=== PATIENT | male | born 1955 | race Caucasian/White ===

== ENCOUNTER 2021-04-04 20:40 | Emergency (ER) | payer MEDICARE ==
[~2021-04-04 20:40] MED LIST: ALLOPURINOL100 MG PO; ASPIRIN325 MG PO; FLOMAX0.4 MG PO; LIPITOR40 MG PO; NORCO 5-325 TA1 EACH PO; PRINIVIL20 MG PO
[2021-04-04 23:29] LABS: BILIRUBIN NEGATIVE (NEGATIVE); BLOOD NEGATIVE Ery/uL (NEGATIVE); CLARITY CLEAR (CLEAR); COLOR YELLOW (YELLOW); GLUCOSE (U) 3+ mg/dL (NORMAL); LEUKOCYTES NEGATIVE Leu/uL (NEGATIVE); NITRITE NEGATIVE (NEGATIVE); PROTEIN NEGATIVE (NEGATIVE); SPECIFIC GRAVITY 1.015 (1.001-1.030); UROBILINOGEN 0.2 mg/dL (0.2-1.0)
== END 2021-04-05 01:03 | disposition left against medical advice (07) ==
LOC: FER 20:40
PROVIDERS: Emergency Medicine
DX: R10.9 Unspecified abdominal pain (principal); Z53.8 Procedure and treatment not carried out for other reasons
CPT/HCPCS: 81003

== ENCOUNTER 2021-09-22 15:17 | Emergency (ER) | payer MEDICARE ==
[2021-09-22] MEDS ORDERED: PREDNISONE 20MG20 MG PO (17:03)
== END 2021-09-22 17:30 | disposition home or self-care (01) ==
LOC: FER 15:17
DX: M54.41 Lumbago with sciatica, right side (principal); E11.9 Type 2 diabetes mellitus without complications; I10 Essential (primary) hypertension
CPT/HCPCS: 96372; J1100; J1885

== ENCOUNTER 2021-09-28 08:15 | Emergency (ER) | payer MEDICARE ==
[~2021-09-28] VITALS: Ht 170.2 cm; Wt 117.9 kg
[~2021-09-28 08:15] MED LIST changes: +PREDNISONE 20MG20 MG PO
[2021-09-28 09:06] LABS: BILIRUBIN NEGATIVE (NEGATIVE); BLOOD 3+ Ery/uL (NEGATIVE); GLUCOSE (U) 1+ mg/dL (NORMAL); LEUKOCYTES 1+ Leu/uL (NEGATIVE); NITRITE POSITIVE (NEGATIVE); PROTEIN TRACE (LOW) mg/dL (NEGATIVE); SPECIFIC GRAVITY 1.025 (1.001-1.030); UROBILINOGEN 0.2 mg/dL (0.2-1.0)
[2021-09-28 09:08] LABS: CLARITY CLOUDY (CLEAR); COLOR AMBER (YELLOW)
[2021-09-28 09:13] LABS: BACTERIA 2+; URINARY RBC TNTC
[2021-09-28 09:19] LABS: BASOPHIL 0.8 % (0-2); EOSINOPHIL 0.9 % (0-7); HCT 50.2 % (42.0-52.0); HGB 16.4 g/dl (13.2-18.0); LYMPHOCYTE 14.6 % (15-48); MCH 27.1 pg (25.0-31.0); MCHC 32.7 g/dL (32.0-36.0); MCV 82.8 fL (78.0-100.0); MPV 11.1 fL (6.0-9.5); NRBC 0; RBC 6.06 M/uL (4.70-6.00); WBC 10.6 K/uL (4.0-10.5)
[2021-09-28 09:36] LABS: ALBUMIN 3.9 g/dL (3.4-5.0); BILIRUBIN - TOTAL 0.6 mg/dL (0.2-1.0); BUN/CREAT RATIO (CALC) 20.6 RATIO; CREATININE 1.36 mg/dL (0.67-1.17); GLOBULIN (CALCULATION) 4.1 g/dL; POTASSIUM 4.2 mmol/L (3.5-5.1)
[2021-09-28 09:38] LABS: PLT 178 K/uL (150-400)
[2021-09-28] MEDS ORDERED: CIPRO500 MG PO (10:08)
== END 2021-09-28 10:25 | disposition home or self-care (01) ==
LOC: FER 08:15
PROVIDERS: Emergency Medicine
DX: E11.22 Type 2 diabetes mellitus with diabetic chronic kidney disease (principal); I12.9 Hypertensive chronic kidney disease with stage 1 through stage 4 chronic kidney disease, or unspecified chronic kidney disease; N18.9 Chronic kidney disease, unspecified; N39.0 Urinary tract infection, site not specified; R33.9 Retention of urine, unspecified
CPT/HCPCS: 36415; 80053; 81001; 85025; 87076; 87088; 87186; 99283